=== PATIENT | male | born 1985 | race African-American/Black ===

== ENCOUNTER 2017-04-07 23:39 | Emergency (ER) | payer OTHER ==
[~2017-04-07] VITALS: Ht 172.7 cm; Wt 67.2 kg
[2017-04-08 00:27] LABS: HEMATOCRIT 40.1 % (38.0-50.0); HEMOGLOBIN 13.8 G/DL (12.5-16.6); MCH 29.6 PG (29.0-34.0); MCHC 34.4 G/DL (30.0-36.0); MCV 86.1 FL (86-99); PLATELET COUNT 258 K/uL (156-360); RBC DIS.WIDTH-CV 11.3 % (11.8-14.6); RBC DIS.WIDTH-SD 35.8 % (39-53); RED BLOOD COUNT 4.66 M/uL (4.00-5.50); WHITE BLOOD COUNT 12.6 K/uL (4.1-10.2)
[2017-04-08 00:35] LABS: CHLORIDE 100 mEq/L (99-109); POTASSIUM 3.8 mEq/L (3.7-5.4); SODIUM 135 mEq/L (136-147)
[2017-04-08 00:37] LABS: GLUCOSE 110 mg/dL (70-99)
[2017-04-08 00:41] LABS: GFR ESTIMATE (CALCULATED) > 59 mL/min/ (58.99-99999)
[2017-04-08 00:42] LABS: UREA NITROGEN (BUN) 13 mg/dL (9-23)
[2017-04-08] MEDS ORDERED: PREDNISONE10 MG PO (03:34)
[2017-04-08] MEDS ORDERED: AUGMENTIN875 MG PO (03:34)
[2017-04-08] MEDS ORDERED: ROXICODONE5 MG PO (03:34)
[2017-04-08] MEDS ORDERED: AUGMENTIN80 MG/ML PO (05:03)
[2017-04-08 05:31] VITALS: BP 119/76
== END 2017-04-08 05:37 | disposition home or self-care (01) ==
LOC: EME 23:39
PROVIDERS: Physician Assistant
PROC: 0C9PXZZ Drainage of Tonsils, External Approach (ICD-10-PCS; principal; 2017-04-07)
DX: J36 Peritonsillar abscess (principal); J45.909 Unspecified asthma, uncomplicated
CPT/HCPCS: 70491; 80048; 85027; 99281; 99285; J0696; J1100; J2405; J3010